=== PATIENT | female | born 1950 | race Caucasian/White ===

== ENCOUNTER 2017-06-25 09:05 | Day surgery (SDC) | payer OTHER ==
[~2017-06-25] VITALS: Ht 152.4 cm; Wt 68.6 kg
[~2017-06-25 09:05] MED LIST: ALBU90OI61; BREO ELLIPTA 21 EACH; Bactrim Ds Tab1 EACH PO; CALC1.25T PO; IBUP600 PO; METH10 PO; OMEPRAZOLE MAGN20 MG
== END 2017-06-25 11:35 | disposition home or self-care (01) ==
LOC: ORSCSDS 09:05
PROVIDERS: Internal Medicine Gastroenterology
PROC: 0DBK8ZX Excision of Ascending Colon, Via Natural or Artificial Opening Endoscopic, Diagnostic (ICD-10-PCS; principal; 2017-06-25 10:30)
PROC: 0DBM8ZX Excision of Descending Colon, Via Natural or Artificial Opening Endoscopic, Diagnostic (ICD-10-PCS; principal; 2017-06-25 10:30)
DX: Z12.11 Encounter for screening for malignant neoplasm of colon (principal); D12.2 Benign neoplasm of ascending colon; D12.4 Benign neoplasm of descending colon; Z85.038 Personal history of other malignant neoplasm of large intestine; Z87.891 Personal history of nicotine dependence
CPT/HCPCS: 88305; J7120

== ENCOUNTER 2019-07-13 04:27 | Emergency (ER) | payer OTHER ==
[~2019-07-13] VITALS: Ht 152.4 cm; Wt 68.0 kg
[2019-07-13] MEDS ORDERED: CALTRATE 600 +1 EACH PO (04:37)
== END 2019-07-13 05:36 | disposition home or self-care (01) ==
LOC: ER 04:27
DX: R04.0 Epistaxis (principal); J45.909 Unspecified asthma, uncomplicated; M19.90 Unspecified osteoarthritis, unspecified site; M81.0 Age-related osteoporosis without current pathological fracture; Z79.51 Long term (current) use of inhaled steroids; Z79.899 Other long term (current) drug therapy; Z87.891 Personal history of nicotine dependence
CPT/HCPCS: 30901; 99283

== ENCOUNTER → 2019-10-06 | Outpatient (CLI) | payer OTHER ==
[~2019-10-06] MED LIST changes: +CALTRATE 600 +1 EACH PO
[2019-10-06 20:38] LABS: Percent Saturation 9.5 % (15.0-50.0)
== END | disposition home or self-care (01) ==
LOC: LAB SHORT 18:06 → LAB 18:06
PROVIDERS: Internal Medicine Hematology & Oncology
DX: D50.0 Iron deficiency anemia secondary to blood loss (chronic) (principal); D51.8 Other vitamin B12 deficiency anemias
CPT/HCPCS: 82607; 82746; 83540; 83550

== ENCOUNTER 2020-07-02 08:44 | Day surgery (SDC) | payer OTHER, SELFPAY ==
[~2020-07-02] VITALS: Ht 152.4 cm; Wt 57.8 kg
[~2020-07-02 08:44] MED LIST changes: -ALBU90OI61; +ALBU90OI61 INH; +ARNUITY ELLIP200 MCG INH; +OMEP20ER PO
--- NOTE | 2020-07-02 09:59 | NUR ---
Ambulatory in Day Surgery. History, Chart, Medications and Allergies reviewed before start of procedure. Lungs clear T/O to Auscultation. Patient confirms NPO status and agrees with scheduled surgery. Pre-Op teaching done. Pt verbalizes understanding.
--- NOTE | 2020-07-02 15:58 | NUR ---
Dressing to procedure site clean, dry, intact with no visible drainage, swelling, erythema or bruising noted. PT TOLERATING PO, REPORT TO LUCA CLAY RN.
--- NOTE | 2020-07-02 16:17 | NUR ---
1600 ASUMED CARE OF PATIENT.ABD INCISIONS COVERED WITH 2x2 DRESSINGS D&I.BIOX 96% ON 2L O2. DROPPED OXYGEN DOWN TO 1 LN/C.
--- NOTE | 2020-07-02 17:23 | NUR ---
1700 ambulate to br steady on feet. voided without difficulty. 1715 oxygen drops incentive spirometer given with good results. sats up to 95% [address] Jiménez
--- NOTE | 2020-07-02 17:38 | NUR ---
A&A UDN COMPLETE, PT CONTINUES TO DENY SOB. USING IS INTERMITTENTLY. CONTINUES TO VERBALIZE AN UNDERSTANDING OF INSTRUCTIONS. NO QUESTIONS.
--- NOTE | 2020-07-02 17:51 | NUR ---
PT CONTINUES DENY SOB. SP02 AT 96% c USE OF IS AND p BREATHING TX. STS HOME O2 TYPICALLY 95%. PT ASSISTED x DRESSING. ABD DRESSING, CLEAN, DRY, INTACT AND s DRAINGE NOTED. IV DC'D, CATH INTACT AND PRESSURE DRESSING APPLIED. RX TAKEN TO PHARM PRIOR TO DC. OTD IN NAD VIA WC. FAMILY VERBALIZES AN UNDERSTANDING. NO QUESTIONS.
== END 2020-07-02 22:40 | disposition home or self-care (01) ==
LOC: ORSCMMR 08:44 → ORD 10:15 → ORSCMMR 10:15
PROVIDERS: Surgery
PROC: 0DNU4ZZ Release Omentum, Percutaneous Endoscopic Approach (ICD-10-PCS; principal; 2020-07-02 10:15)
PROC: 0FT44ZZ Resection of Gallbladder, Percutaneous Endoscopic Approach (ICD-10-PCS; principal; 2020-07-02 10:15)
PROC: BF031ZZ Plain Radiography of Gallbladder and Bile Ducts using Low Osmolar Contrast (ICD-10-PCS; principal; 2020-07-02 10:15)
DX: K80.20 Calculus of gallbladder without cholecystitis without obstruction (principal); K66.0 Peritoneal adhesions (postprocedural) (postinfection); J45.909 Unspecified asthma, uncomplicated; Z87.891 Personal history of nicotine dependence; K21.9 Gastro-esophageal reflux disease without esophagitis; Z79.899 Other long term (current) drug therapy
CPT/HCPCS: 74300; 88304; A9270; C1729; J0690; J1100; J1885; J2250; J2405; J2704; J3010; J7030; J7120

== ENCOUNTER → 2020-11-15 | Outpatient (CLI) | payer OTHER ==
[2020-11-15 15:37] LABS: BASOPHILS ABSOLUTE AUTO 0.06 K/mm3 (0.00-0.23); BASOPHILS PERCENT AUTO 1 % (0-2); EOSINOPHILS ABSOLUTE AUTO 0.23 K/mm3 (0.00-0.68); EOSINOPHILS PERCENT AUTO 4 % (0-6); Hematocrit 43.2 % (33.0-51.0); Hemoglobin 13.6 g/dL (11.5-16.0); IMMATURE GRAN ABSOLUTE AUTO 0.01 K/mm3 (0.00-0.10); IMMATURE GRAN PERCENT AUTO 0 % (0-1); LYMPHOCYTES PERCENT AUTO 31 % (21-46); MONOCYTES PERCENT AUTO 8 % (4-13); Mean Corpuscular HGB 30.3 pg (26.0-34.0); Mean Corpuscular HGB Conc 31.5 g/dL (31.5-36.5); Mean Corpuscular Volume 96 fL (80-100); Mean Platelet Volume 10.9 fL (9.1-12.4); NEUTROPHILS ABSOLUTE AUTO 3.44 K/mm3 (1.96-9.15); NEUTROPHILS PERCENT AUTO 56 % (41-73); Platelet Count 208 K/mm3 (150-400); RDW Coefficient Variation 12.3 % (11.7-14.2); RDW Standard Deviation 43.1 fL (35.1-46.3); Red Blood Cell Count 4.49 M/mm3 (3.80-5.20); White Blood Cell Count 6.14 K/mm3 (4.00-11.30)
[2020-11-15 16:18] LABS: Alanine Aminotransfer (ALT/SGP 25 U/L (12-78); Albumin, Blood 3.6 g/dL (3.4-5.0); Albumin/Globulin Ratio 1.2 (0.8-1.8); Alk Phos 69 U/L (50-136); Anion Gap 2 mmol/L (6-16); Aspartate Aminotrans (AST/SGOT 26 U/L (12-37); Bilirubin, Total 0.9 mg/dL (0.1-1.0); Blood Urea Nitrogen 11 mg/dL (8-24); Bun/Creatinine Ratio 14.4 (12.0-20.0); CO2, Blood 33 mmol/L (21-32); Calcium, Blood 8.9 mg/dL (8.5-10.1); Chloride, Blood 106 mmol/L (98-108); Creatinine, Blood 0.77 mg/dL (0.40-1.00); Glomerular Filtration Rate >60 (60-); Glucose, Blood 104 mg/dL (70-99); Phosphorus, Blood 3.9 mg/dL (2.5-4.9); Potassium, Blood 3.7 mmol/L (3.5-5.5); Sodium, Blood 141 mmol/L (136-145); Total Protein, Blood 6.6 g/dL (6.4-8.2)
== END | disposition home or self-care (01) ==
LOC: LAB 13:53 → LAB SHORT 13:53
PROVIDERS: Internal Medicine Hematology & Oncology
DX: D50.0 Iron deficiency anemia secondary to blood loss (chronic) (principal)
CPT/HCPCS: 80053; 84100; 85025

== ENCOUNTER 2021-12-02 03:32 | Emergency (ER) | payer OTHER ==
[~2021-12-02] VITALS: Ht 152.4 cm; Wt 66.2 kg
[2021-12-02] MEDS ORDERED: BUPRENORPHINE HC2 M1 SL (04:13)
[2021-12-02] MEDS ORDERED: IBU800 M1 (04:13)
[2021-12-02] MEDS ORDERED: Vibramycin100 MG PO (04:40)
[2021-12-02] MEDS ORDERED: CEPH500 PO (16:37)
== END 2021-12-02 05:21 | disposition home or self-care (01) ==
LOC: ER 03:32
DX: L03.011 Cellulitis of right finger (principal); L03.113 Cellulitis of right upper limb; J45.909 Unspecified asthma, uncomplicated; Z87.891 Personal history of nicotine dependence; Z79.899 Other long term (current) drug therapy
CPT/HCPCS: A9270

== ENCOUNTER 2022-02-10 03:51 | Emergency (ER) | payer OTHER ==
[~2022-02-10] VITALS: Ht 152.4 cm; Wt 63.5 kg
[~2022-02-10 03:51] MED LIST changes: +BUPRENORPHINE HC2 M1 SL; +CEPH500 PO; +IBU800 M1; +Vibramycin100 MG PO
[2022-02-10 05:07] LABS: BASOPHILS ABSOLUTE AUTO 0.05 K/mm3 (0.00-0.23); BASOPHILS PERCENT AUTO 1 % (0-2); EOSINOPHILS ABSOLUTE AUTO 0.09 K/mm3 (0.00-0.68); EOSINOPHILS PERCENT AUTO 2 % (0-6); Hematocrit 43.7 % (33.0-51.0); Hemoglobin 13.8 g/dL (11.5-16.0); IMMATURE GRAN ABSOLUTE AUTO 0.02 K/mm3 (0.00-0.10); IMMATURE GRAN PERCENT AUTO 0 % (0-1); LYMPHOCYTES ABSOLUTE AUTO 1.45 K/mm3 (0.84-5.20); LYMPHOCYTES PERCENT AUTO 24 % (21-46); MONOCYTES ABSOLUTE AUTO 0.46 K/mm3 (0.16-1.47); MONOCYTES PERCENT AUTO 8 % (4-13); Mean Corpuscular HGB 29.6 pg (26.0-34.0); Mean Corpuscular HGB Conc 31.6 g/dL (31.5-36.5); Mean Corpuscular Volume 94 fL (80-100); Mean Platelet Volume 10.4 fL (9.1-12.4); NEUTROPHILS PERCENT AUTO 66 % (41-73); Platelet Count 196 K/mm3 (150-400); RDW Coefficient Variation 11.9 % (11.7-14.2); RDW Standard Deviation 41.1 fL (35.1-46.3); Red Blood Cell Count 4.67 M/mm3 (3.80-5.20); White Blood Cell Count 6.07 K/mm3 (4.00-11.30)
[2022-02-10 05:28] LABS: Albumin, Blood 3.4 g/dL (3.4-5.0); Bilirubin, Total 0.6 mg/dL (0.1-1.0); Bun/Creatinine Ratio 27.2 (12.0-20.0); Calcium, Blood 9.1 mg/dL (8.5-10.1); Creatinine, Blood 0.51 mg/dL (0.40-1.00); Globulin, Blood 3.3 g/dL (2.2-4.0); Magnesium, Blood 2.3 mg/dL (1.6-2.4); Potassium, Blood 4.1 mmol/L (3.5-5.5); Total Protein, Blood 6.7 g/dL (6.4-8.2)
[2022-02-10 07:40] LABS: Source, Urine Clean Catch
[2022-02-10 08:01] LABS: Appearance, Urine Clear (Clear); Bilirubin, Urine Neg (Neg); Blood, Urine Neg (Neg); Color, Urine Yellow (P-Yellow); Glucose Qualitative, Urine Neg (Neg); Ketones, Urine Neg (Neg); Leukocyte Esterase, Urine Neg (Neg); Nitrite, Urine Neg (Neg); Protein, Urine Neg (Neg); Specific Gravity, Urine 1.015 (1.003-1.022); Urobilinogen, Urine NORM (Normal)
[2022-02-10] MEDS ORDERED: DOC250 PO (08:17)
== END 2022-02-10 08:28 | disposition home or self-care (01) ==
LOC: ER 03:51
PROVIDERS: Student in an Organized Health Care Education/Training Program
DX: R10.32 Left lower quadrant pain (principal); J45.909 Unspecified asthma, uncomplicated; Z87.891 Personal history of nicotine dependence
CPT/HCPCS: 36415; 74177; 80053; 81003; 83690; 83735; 85025; 93005; 93010; 96374-59; 96375; 99284-25; J1885; J2405; Q9967

== ENCOUNTER 2024-08-03 08:22 | Emergency (ER) | payer OTHER ==
[~2024-08-03] VITALS: Ht 144.8 cm; Wt 60.0 kg
[~2024-08-03 08:22] MED LIST changes: +DOC250 PO
[2024-08-03] MEDS ORDERED: Ketorolac Tromethamine 15mg Vial IM ONE (09:45)
[2024-08-03] MEDS ORDERED: Lidocaine 4% 1 Patch TOP ONE (09:45)
[2024-08-03] MEDS ORDERED: Acetaminophen 500 MG Tab PO ONE (09:45)
[2024-08-03 10:26] VITALS: BP 149/104
[2024-08-03] MEDS ORDERED: Cyclobenzaprine5 MG PO (10:33)
[2024-08-03] MEDS ORDERED: HYDR1TAB94 PO (10:33)
[2024-08-03] MEDS ORDERED: LIDO700A20 TOP (10:33)
== END 2024-08-03 10:44 | disposition home or self-care (01) ==
LOC: ER 08:22
DX: M54.50 Low back pain, unspecified (principal); G89.29 Other chronic pain; M81.0 Age-related osteoporosis without current pathological fracture; J45.909 Unspecified asthma, uncomplicated; Z85.038 Personal history of other malignant neoplasm of large intestine; Z87.891 Personal history of nicotine dependence; Z59.89 Other problems related to housing and economic circumstances
CPT/HCPCS: 96372; 99283-25; A9270; J1885